=== PATIENT | female | born 1985 | race American Indian/Alaskan Native ===

== ENCOUNTER 2020-11-20 13:11 | Observation (INO) | payer MEDICAID ==
--- NOTE | 2020-11-20 14:03 | Event Note ---
ED Screening Note ED Screening Note: SOB that worsened today states she has been having SOB for a couple months +fever no n/v/d was last admitted a few days ago at [facility] of pulmonary HTN, ESRD (Friday and ) states she last went on 11/14/2020, RA wears oxygen at home, 2L This initial assessment/diagnostic orders/clinical plan/treatment(s) is/are subject to change based on patients health status, clinical progression and re- assessment by fellow clinical providers in the ED. Further treatment and workup at subsequent clinical providers discretion. Patient/guardian urged not to elope from the ED as their condition may be serious if not clinically assessed and managed. Initial orders include: code sepsis
[2020-11-20 14:28] LABS: Mean Corpuscular HGB Conc 30 % (30-34); Mean Corpuscular Volume 83 fl (79-97); Platelet Count 191 K/mm3 (140-440); Red Blood Count 3.61 M/mm3 (3.65-5.03)
[2020-11-20 14:33] LABS: Hematocrit 29.9 % (30.3-42.9); Red Cell Distribution Width 20.5 % (13.2-15.2)
[2020-11-20] MEDS ORDERED: CEFEPIME/NS 2 GM/100 ML 2 GM/100 ML BAG IV ONE (14:40)
[2020-11-20] MEDS ORDERED: SODIUM CHLORIDE 0.9% 500 ML 500 ML IV ONE (14:40)
[2020-11-20 14:52] LABS: Alanine Aminotransferase 8 units/L (7-56); Albumin 3.9 g/dL (3.9-5); BUN/Creatinine Ratio 42; Blood Urea Nitrogen 38 mg/dL (7-17); Hemolysis Index 10
[2020-11-20] MEDS ORDERED: KETOROLAC 30 MG/1 ML INJ IV ONE (15:11)
[2020-11-20] MEDS ORDERED: SODIUM BICARB 8.4% 50 MEQ/50 ML SYRINGE IV ONE (15:19)
[2020-11-20] MEDS ORDERED: ALBUTEROL 2.5 MG/3 ML NEBU IH ONE (15:19)
[2020-11-20] MEDS ORDERED: INSULIN REGULAR, HUMAN 100 UNIT/ML 3ML VIAL IV ONE (15:19)
[2020-11-20] MEDS ORDERED: DEXTROSE 50% IN WATER (25GM) 50 ML SYRINGE IV ONE (15:19)
--- NOTE | 2020-11-20 15:32 | Emergency Department Report ---
ED Shortness of Breath HPI - General Chief Complaint: Dyspnea/Respdistress Stated Complaint: ÁNGEL/SOB Time Seen by Provider: 11/20/20 13:59 Source: patient, EMS Mode of arrival: Wheelchair Limitations: No Limitations - History of Present Illness Initial Comments: Patient is a 35-year-old F Senegalese female with a past medical history of systemic lupus pulmonary hypertension end-stage renal disease who is presenting with shortness of breath. Patient states that she does dialysis twice a week. She has a port in the right subclavian. Patient's last dialysis was Friday and she was told that her labs look good and that she did not need dialysis at that time. Patient states she has developed shortness of breath over the last 24 hours. She is short of breath despite being oxygen dependent and wearing her oxygen. Patient arrived with O2 sat in the upper 80s. Who placed the patient on 4 L of nasal cannula which did increase her oxygen level 200%. Patient denies cough congestion. She will was surprised to find out that she was febrile on arrival. Patient states she is making urine and is compliant with Lasix for her pulmonary hypertension. States she is weak when she stands and has a great deal of fatigue over the last 24 hours as well. - Related Data Allergies Allergy/AdvReac Type Severity Reaction Status Date / Time acetaminophen Allergy Hives Verified 11/20/20 13:23 heparin Allergy Hives Verified 11/20/20 13:23 morphine Allergy Hives Verified 11/20/20 13:23 oxycodone [From Percocet] Allergy Hives Verified 11/20/20 13:23 ED Review of Systems ROS: Stated complaint: ÁNGEL/SOB Other details as noted in HPI Comment: All other systems reviewed and negative ED Past Medical Hx - Past Medical History Hx Renal Disease: Yes Additional medical history: PULMONARY EDEMA/ VENTILATOR IN AUG - Social History Smoking Status: Never Smoker Substance Use Type: None ED Physical Exam - General Limitations: No Limitations General appearance: alert, in no apparent distress - Head Head exam: Present: atraumatic, normocephalic - Eye Eye exam: Present: normal appearance - ENT ENT exam: Present: normal orophraynx, mucous membranes moist - Neck Neck exam: Present: normal inspection - Respiratory Respiratory exam: Present: respiratory distress, rales. Absent: normal lung sounds bilaterally, wheezes, rhonchi, stridor, chest wall tenderness, accessory muscle use - Cardiovascular Cardiovascular Exam: Present: normal rhythm, tachycardia. Absent: systolic murmur, diastolic murmur, rubs, gallop - GI/Abdominal GI/Abdominal exam: Present: soft, normal bowel sounds. Absent: distended, tenderness, guarding, rebound - Extremities Exam Extremities exam: Present: normal inspection - Back Exam Back exam: Present: normal inspection - Neurological Exam Neurological exam: Present: alert, oriented X3 - Psychiatric Psychiatric exam: Present: normal affect, normal mood - Skin Skin exam: Present: warm, dry, intact, normal color. Absent: rash ED Course Vital Signs 11/20/20 13:14 Temperature 101 F H Pulse Rate 130 H Respiratory 28 H Rate Blood Pressure 154/77 O2 Sat by Pulse 100 Oximetry ED Medical Decision Making - Lab Data Result diagrams: 11/20/20 14:06 11/20/20 14:06 Lab Results 11/20/20 11/20/20 11/20/20 Range/Units 14:06 14:06 14:06 WBC 6.6 (4.5-11.0) K/mm3 RBC 3.61 L (3.65-5.03) M/mm3 Hgb 9.0 L (10.1-14.3) gm/dl Hct 29.9 L (30.3-42.9) % MCV 83 (79-97) fl MCH 25 L (28-32) pg MCHC 30 (30-34) % RDW 20.5 H (13.2-15.2) % Plt Count 191 (140-440) K/mm3 Seg Neutrophils % Medical Reimbursement Manager Sodium 142 (137-145) mmol/L Potassium 7.2 H* (3.6-5.0) mmol/L Chloride 108.1 H (98-107) mmol/L Carbon Dioxide 25 (22-30) mmol/L Anion Gap 16 mmol/L BUN 38 H (7-17) mg/dL Creatinine 0.9 (0.6-1.2) mg/dL Estimated GFR > 60 ml/min BUN/Creatinine Ratio 42 % Glucose 81 (65-100) mg/dL Lactic Acid 0.60 L (0.7-2.0) mmol/L Calcium 9.0 (8.4-10.2) mg/dL Total Bilirubin 0.40 (0.1-1.2) mg/dL AST 19 (5-40) units/L ALT 8 (7-56) units/L Alkaline Phosphatase 103 (35-129) units/L NT-Pro-B Natriuret Pep 3558 H (0-450) pg/mL Total Protein 9.0 H (6.3-8.2) g/dL Albumin 3.9 (3.9-5) g/dL Albumin/Globulin Ratio 0.8 % - EKG Data -: EKG Interpreted by Me EKG shows normal: intervals - EKG Data 11/20/20 15:51 EKG shows sinus tachycardia 122. [place] is rightward. Intervals otherwise normal. There is no ST segment elevations or depressions or peak T waves. Time of interpretation 1545. - Radiology Data Chest x-ray shows diffuse interstitial changes consistent with pulmonary edema. - Medical Decision Making Patient is a 35-year-old F [place] female is presenting with fluid overload shortness of breath. Patient is has a history of end-stage renal disease and has not been dialyzed in 6 days. Patient was initially hypoxic but we increased her oxygen to 4 L and her hypoxia resolved. Patient's laboratory studies show elevated potassium. Ordered cocktail to decrease the potassium level however the patient is going to dialysis immediately and we will hold these medications since she is going directly to dialysis. We will keep the order in case there is some delay in the patient will need these medications. Patient does have a fever and met sepsis criteria. Blood cultures drawn. Is likely that the patient has bacteremia. Patient given a dose of cefepime and follow-up on her blood cultures when they returned. Patient be admitted to the hospitalist service. Nephrology has been consulted. Critical Care Time: Yes (30) Critical care attestation.: If time is entered above; I have spent that time in minutes in the direct care of this critically ill patient, excluding procedure time. ED Disposition Clinical Impression: ESRD needing dialysis, Hyperkalemia Pulmonary edema Qualifiers: Chronicity: acute Qualified Code(s): J81.0 - Acute pulmonary edema Sepsis Qualifiers: Sepsis type: sepsis due to unspecified organism Sepsis acute organ dysfunction status: unspecified Qualified Code(s): A41.9 - Sepsis, unspecified organism Disposition: OP ADMIT IP TO THIS HOSP Is pt being admited?: Yes Does the pt Need Aspirin: No Condition: Stable Instructions: Pulmonary Edema (ED) Time of Disposition: 15:55
[2020-11-20 15:49] LABS: Band Neutrophils # (Manual) 0.1 K/mm3; Total Cells Counted 100
[2020-11-20] MEDS ORDERED: SODIUM POLYSTYRENE 15 GM/60 ML ORAL LIQD PO ONE (15:49)
[2020-11-20 15:50] LABS: Anisocytosis 1+; Poikilocytosis 2+
[2020-11-20 16:08] LABS: Hypochromasia 1+; Tear Drop Cells 2+
[2020-11-20 16:09] LABS: Platelet Estimate Consistent w Auto
[2020-11-20] MEDS ORDERED: ACETAMINOPHEN 325 MG TAB PO ONE (16:14)
[2020-11-20 16:22] LABS: C-Reactive Protein 4.3 mg/dL (0.00-1.30)
[2020-11-20 16:28] LABS: Bilirubin,Urine NEG (Negative); Blood,Urine SM (Negative); Color,Urine Yellow (Yellow); Urobilinogen,Urine < 2.0 mg/dL (<2.0)
[2020-11-20 17:00] LABS: Hepatitis B Surface Antigen Non-Reactive (Negative); Hepatitis C Virus Antibody Non-Reactive (NonReactive)
--- NOTE | 2020-11-20 17:02 | Consultation ---
History of Present Illness - Reason for Consult Consult date: 11/20/20 end stage renal disease - History of Present Illness This is a 35 year old female who presents to the E.R with a chief complaint of having shortness of breath. Patient states she gets this shortness of breath every 30 days since started on a new medication for Pulmonary Hypertension which is being monitored by a doctor at [facility]. Patient states she was started on hemodialysis in August at [facility] but was told her renal failure was Acute and that she is still on dialysis to use it to help in managing her Pulmonary Hypertension. She states her outpatient environmental remediation engineer is Dr. Chowdhury of [facility]. Patient states she dialyzes at [facility] on Tuesdays and Saturdays but has not gotten any dialysis for 1 week now. Last dialysis was on Friday11/11/20. Patient has history of ESRD and Pulmonary Hypertension. We are being consulted for management of this patient's renal disease. Past History Past Medical History: anemia, dialysis, hypertension, renal failure, other (Acute Renal Failure) Past Surgical History: Other (Perm-cath placement) Social history: no significant social history Family history: no significant family history Medications and Allergies Allergies Allergy/AdvReac Type Severity Reaction Status Date / Time acetaminophen Allergy Hives Verified 11/20/20 13:23 heparin Allergy Hives Verified 11/20/20 13:23 morphine Allergy Hives Verified 11/20/20 13:23 oxycodone [From Percocet] Allergy Hives Verified 11/20/20 13:23 Review of Systems Constitutional: fatigue, no weight loss, no weight gain, no fever, no sweats Ears, nose, mouth and throat: no ear pain, no ear discharge, no tinnitis, no decreased hearing, no nose pain Cardiovascular: edema, shortness of breath, high blood pressure, leg edema, no chest pain, no orthopnea, no palpitations, no rapid/irregular heart beat Respiratory: shortness of breath, no cough with sputum, no excessive sputum, no hemoptysis Gastrointestinal: no abdominal pain, no nausea, no vomiting, no diarrhea, no constipation Genitourinary Female: no dyspareunia, no dysmenorrhea, no pelvic pain, no flank pain, no menorrhagia Musculoskeletal: no neck stiffness, no neck pain, no shooting arm pain, no arm numbness/tingling Integumentary: sores, wounds, no rash, no pruritis, no redness, no jaundice, no boils Neurological: weakness, no head injury, no transient paralysis, no paralysis, no seizures, no syncope, no tremors Psychiatric: no memory loss, no change in sleep habits, no sleep disturbances, no insomnia, no hypersomnia Endocrine: no cold intolerance, no heat intolerance, no polyphagia Exam - Vital Signs Vital signs: Vital Signs Temp Pulse Resp BP Pulse Ox 101 F H 130 H 28 H 154/77 100 11/20/20 13:14 11/20/20 13:14 11/20/20 13:14 11/20/20 13:14 11/20/20 13:14 - General Appearance General appearance: well-developed, appears stated age, fatigue EENT: ATNC, PERRL, hearing intact, vision intact Neck: Present: neck supple, trachea midline Respiratory: Decreased Breath Sounds Heart: regular, S1S2 Gastrointestinal: Present: normoactive bowel sounds Integumentary: warm and dry Neurologic: alert and oriented x3 Musculoskeletal: Present: decreased ROM, other (Has wound bandages to bother lower extremities) Results - Lab Results 11/20/20 14:06 11/20/20 15:44 Most recent lab results Calcium 9.0 mg/dL (8.4-10.2) 11/20/20 14:06 Assessment and Plan Assessment: Acute Renal Failure on intermittent hemodialysis Hyperkalemia Anemia Shortness of Breath pulmonary Hypertension Plan: -Renal labs reviewed. Serum creatinine 0.9 and BUN level 38. -Patient has a functional perm-catheter to left IJ -Patient reports her renal failure is Acute but is on intermittent hemodialysis twice per week and sometimes once per week to help in managing her Pulmonary H ypertension. Patient to follow-up with he outpatient environmental remediation engineer upon discharge -STAT hemodialysis ordered for clearance mainly given Hyperkalemia via her left IJ perm-catheter -Fluid restriction of 1 liter per day -Obtain daily weights -Monitor I/O's daily -Avoid nephrotoxic agents -Can be discharged after HD today
--- NOTE | 2020-11-20 19:50 | History and Physical Report ---
History of Present Illness Date of examination: 11/20/20 Date of admission: 11/20/20 15:55 Chief complaint: Shortness of breath for 1 day No dialysis for 6 days History of present illness: 35-year-old F Vincentian female with a past medical history of systemic lupus pu lmonary hypertension end-stage renal disease is presenting with shortness of breath. Patient states that she does dialysis twice a week. She has a port in the right subclavian. Patient's last dialysis was Friday and she was told that her labs look good and that she did not need dialysis at that time. Patient states she has developed shortness of breath over the last 24 hours. She is short of breath despite being oxygen dependent and wearing her oxygen. Patient arrived with O2 sat in the upper 80s. Patient on 4 L of nasal cannula which did increase her oxygen level 200%. Patient denies cough congestion. She will was surprised to find out that she was febrile on arrival. Patient states she is making urine and is compliant with Lasix for her pulmonary hypertension. States she is weak when she stands and has a great deal of fatigue over the last 24 hours as well.Fever once. Has Vas-Cath. - Related Data Allergies Allergy/AdvReac Type Severity Reaction Status Date / Time acetaminophen Allergy Hives Verified 11/20/20 13:23 heparin Allergy Hives Verified 11/20/20 13:23 morphine Allergy Hives Verified 11/20/20 13:23 oxycodone [From Percocet] Allergy Hives Verified 11/20/20 13:23 - Past Medical History Hx Renal Disease: Yes Additional medical history: PULMONARY EDEMA/ VENTILATOR IN AUG 12 [id number] and 31 surgical history - Social History Smoking Status: Never Smoker Substance Use Type: None Review of Systems ROS: Stated complaint: ÁNGEL/SOB Other details as noted in HPI Comment: All other systems reviewed and negative Medications and Allergies Allergies Allergy/AdvReac Type Severity Reaction Status Date / Time acetaminophen Allergy Hives Verified 11/20/20 13:23 heparin Allergy Hives Verified 11/20/20 13:23 morphine Allergy Hives Verified 11/20/20 13:23 oxycodone [From Percocet] Allergy Hives Verified 11/20/20 13:23 Exam - Constitutional Vitals: Temp Pulse Resp BP Pulse Ox 97.8 F 88 32 H 98/48 98 11/20/20 17:25 11/20/20 19:45 11/20/20 17:25 11/20/20 19:45 11/20/20 16:15 Results - Labs CBC & Chem 7: 11/20/20 14:06 11/20/20 15:44 Labs: Laboratory Last Values WBC 6.6 K/mm3 (4.5-11.0) 11/20/20 14:06 RBC 3.61 M/mm3 (3.65-5.03) L 11/20/20 14:06 Hgb 9.0 gm/dl (10.1-14.3) L 11/20/20 14:06 Hct 29.9 % (30.3-42.9) L 11/20/20 14:06 MCV 83 fl (79-97) 11/20/20 14:06 MCH 25 pg (28-32) L 11/20/20 14:06 MCHC 30 % (30-34) 11/20/20 14:06 RDW 20.5 % (13.2-15.2) H 11/20/20 14:06 Plt Count 191 K/mm3 (140-440) 11/20/20 14:06 Add Manual Diff Complete 11/20/20 14:06 Total Counted 100 11/20/20 14:06 Seg Neutrophils % Supervisor Roving 11/20/20 14:06 Seg Neuts % (Manual) 86.0 % (40.0-70.0) H 11/20/20 14:06 Band Neutrophils % 2.0 % 11/20/20 14:06 Lymphocytes % (Manual) 7.0 % (13.4-35.0) L 11/20/20 14:06 Monocytes % (Manual) 3.0 % (0.0-7.3) 11/20/20 14:06 Metamyelocytes % 2.0 % 11/20/20 14:06 Nucleated RBC % Not Reportable 11/20/20 14:06 Seg Neutrophils # Man 5.7 K/mm3 (1.8-7.7) 11/20/20 14:06 Band Neutrophils # 0.1 K/mm3 11/20/20 14:06 Lymphocytes # (Manual) 0.5 K/mm3 (1.2-5.4) L 11/20/20 14:06 Abs React Lymphs (Man) 0.0 K/mm3 11/20/20 14:06 Monocytes # (Manual) 0.2 K/mm3 (0.0-0.8) 11/20/20 14:06 Eosinophils # (Manual) 0.0 K/mm3 (0.0-0.4) 11/20/20 14:06 Basophils # (Manual) 0.0 K/mm3 (0.0-0.1) 11/20/20 14:06 Metamyelocytes # 0.1 K/mm3 11/20/20 14:06 Myelocytes # 0.0 K/mm3 11/20/20 14:06 Promyelocytes # 0.0 K/mm3 11/20/20 14:06 Blast Cells # 0.0 K/mm3 11/20/20 14:06 WBC Morphology Not Reportable 11/20/20 14:06 Hypersegmented Neuts Not Reportable 11/20/20 14:06 Hyposegmented Neuts Not Reportable 11/20/20 14:06 Hypogranular Neuts Not Reportable 11/20/20 14:06 Smudge Cells Not Reportable 11/20/20 14:06 Toxic Granulation Not Reportable 11/20/20 14:06 Toxic Vacuolation Not Reportable 11/20/20 14:06 Dohle Bodies Not Reportable 11/20/20 14:06 Pelger-Huet Anomaly Not Reportable 11/20/20 14:06 Laureen Rods Not Reportable 11/20/20 14:06 Platelet Estimate Consistent w auto 11/20/20 14:06 Clumped Platelets Not Reportable 11/20/20 14:06 Plt Clumps, EDTA Not Reportable 11/20/20 14:06 Large Platelets Not Reportable 11/20/20 14:06 Giant Platelets Not Reportable 11/20/20 14:06 Platelet Satelliting Not Reportable 11/20/20 14:06 Plt Morphology Comment Not Reportable 11/20/20 14:06 RBC Morphology Not Reportable 11/20/20 14:06 Dimorphic RBCs Not Reportable 11/20/20 14:06 Polychromasia Not Reportable 11/20/20 14:06 Hypochromasia 1+ 11/20/20 14:06 Poikilocytosis 2+ 11/20/20 14:06 Anisocytosis 1+ 11/20/20 14:06 Microcytosis Not Reportable 11/20/20 14:06 Macrocytosis Not Reportable 11/20/20 14:06 Spherocytes Not Reportable 11/20/20 14:06 Pappenheimer Bodies Not Reportable 11/20/20 14:06 Sickle Cells Not Reportable 11/20/20 14:06 Target Cells Not Reportable 11/20/20 14:06 Tear Drop Cells 2+ 11/20/20 14:06 Ovalocytes Not Reportable 11/20/20 14:06 Helmet Cells Not Reportable 11/20/20 14:06 [place] Bodies Not Reportable 11/20/20 14:06 [place] Rings Not Reportable 11/20/20 14:06 [place] Cells Not Reportable 11/20/20 14:06 Bite Cells Not Reportable 11/20/20 14:06 Crenated Cell Not Reportable 11/20/20 14:06 Elliptocytes Few 11/20/20 14:06 Acanthocytes (Spur) Not Reportable 11/20/20 14:06 Rouleaux Not Reportable 11/20/20 14:06 Hemoglobin C Crystals Not Reportable 11/20/20 14:06 Schistocytes Not Reportable 11/20/20 14:06 Malaria parasites Not Reportable 11/20/20 14:06 Ch[place] Bodies Not Reportable 11/20/20 14:06 Hem Pathologist Commnt No 11/20/20 14:06 D-Dimer 1134.27 ng/mlDDU (0-234) H 11/20/20 15:44 Sodium 142 mmol/L (137-145) 11/20/20 14:06 Potassium 7.2 mmol/L (3.6-5.0) H* 11/20/20 14:06 Chloride 108.1 mmol/L (98-107) H 11/20/20 14:06 Carbon Dioxide 25 mmol/L (22-30) 11/20/20 14:06 Anion Gap 16 mmol/L 11/20/20 14:06 BUN 38 mg/dL (7-17) H 11/20/20 14:06 Creatinine 0.9 mg/dL (0.6-1.2) 11/20/20 14:06 Estimated GFR > 60 ml/min 11/20/20 14:06 BUN/Creatinine Ratio 42 % 11/20/20 14:06 Glucose 73 mg/dL (65-100) 11/20/20 15:44 Lactic Acid 0.60 mmol/L (0.7-2.0) L 11/20/20 14:06 Calcium 9.0 mg/dL (8.4-10.2) 11/20/20 14:06 Ferritin 354.2 ng/mL (10.0-200.0) H 11/20/20 15:44 Total Bilirubin 0.40 mg/dL (0.1-1.2) 11/20/20 14:06 AST 19 units/L (5-40) 11/20/20 14:06 ALT 8 units/L (7-56) 11/20/20 14:06 Alkaline Phosphatase 103 units/L (35-129) 11/20/20 14:06 Lactate Dehydrogenase 184 units/L (91-180) H 11/20/20 15:44 C-Reactive Protein 4.30 mg/dL (0.00-1.30) H 11/20/20 15:44 NT-Pro-B Natriuret Pep 3558 pg/mL (0-450) H 11/20/20 14:06 Total Protein 9.0 g/dL (6.3-8.2) H 11/20/20 14:06 Albumin 3.9 g/dL (3.9-5) 11/20/20 14:06 Albumin/Globulin Ratio 0.8 % 11/20/20 14:06 Urine Color Yellow (Yellow) 11/20/20 15:46 Urine Turbidity Clear (Clear) 11/20/20 15:46 Urine pH 5.0 (5.0-7.0) 11/20/20 15:46 Ur Specific [place] 1.010 (1.003-1.030) 11/20/20 15:46 Urine Protein 100 mg/dl mg/dL (Negative) 11/20/20 15:46 Urine Glucose (UA) Neg mg/dL (Negative) 11/20/20 15:46 Urine Ketones Neg mg/dL (Negative) 11/20/20 15:46 Urine Blood Sm (Negative) 11/20/20 15:46 Urine Nitrite Neg (Negative) 11/20/20 15:46 Urine Bilirubin Neg (Negative) 11/20/20 15:46 Urine Urobilinogen < 2.0 mg/dL (<2.0) 11/20/20 15:46 Ur Leukocyte Esterase Lg (Negative) 11/20/20 15:46 Urine WBC (Auto) 16.0 /HPF (0.0-6.0) H 11/20/20 15:46 Urine RBC (Auto) 18.0 /HPF (0.0-6.0) 11/20/20 15:46 U Epithel Cells (Auto) 2.0 /HPF (0-13.0) 11/20/20 15:46 Hepatitis A IgM Ab Non-reactive (NonReactive) 11/20/20 16:19 Hep Bs Antigen Non-reactive (Negative) 11/20/20 16:19 Hep B Core IgM Ab Non-reactive (NonReactive) 11/20/20 16:19 Hepatitis C Antibody Non-reactive (NonReactive) 11/20/20 16:19 Short CBC 11/20/20 Range/Units 14:06 WBC 6.6 (4.5-11.0) K/mm3 Hgb 9.0 L (10.1-14.3) gm/dl Hct 29.9 L (30.3-42.9) % Plt Count 191 (140-440) K/mm3 BMP 11/20/20 11/20/20 14:06 15:44 Sodium 142 Potassium 7.2 H* Chloride 108.1 H Carbon Dioxide 25 BUN 38 H Creatinine 0.9 Glucose 81 73 Calcium 9.0 Liver Function 11/20/20 Range/Units 14:06 Total Bilirubin 0.40 (0.1-1.2) mg/dL AST 19 (5-40) units/L ALT 8 (7-56) units/L Alkaline Phosphatase 103 (35-129) units/L Albumin 3.9 (3.9-5) g/dL Urine 11/20/20 Range/Units 15:46 Urine Color Yellow (Yellow) Urine pH 5.0 (5.0-7.0) Ur Specific [place] 1.010 (1.003-1.030) Urine Protein 100 mg/dl (Negative) mg/dL Urine Glucose (UA) Neg (Negative) mg/dL Microbiology: Microbiology 11/20/20 14:06 Peripheral/Venous Blood Culture - Preliminary Culture in Progress 11/20/20 14:06 Peripheral/Venous Blood Culture - Preliminary Culture in Progress Benjamin/IV: IV Catheter Type [Left Hand] INT / Saline Lock Assessment and Plan Advance Directives: Yes (Full code) VTE prophylaxis?: Chemical Plan of care discussed with patient/family: Yes - Patient Problems (1) Volume overload Current Visit: Yes Status: Acute Plan to address problem: Needs emergent hemodialysis for increased ultrafiltration and removal of fluid up to 2 L (2) ESRD needing dialysis Current Visit: Yes Status: Acute Plan to address problem: Emergent hemodialysis Nephrology consulted (3) Hyperkalemia Current Visit: Yes Status: Acute Plan to address problem: Patient to get low potassium bath Patient also given Kayexalate calcium gluconate etc. in the emergency room (4) Insulin dependent diabetes mellitus Current Visit: Yes Status: Acute Plan to address problem: continue insulin (5) DVT prophylaxis Current Visit: Yes Status: Acute Plan to address problem: On heparin and GI prophylaxis
[2020-11-20] MEDS ORDERED: ONDANSETRON 4 MG/2 ML INJ IV PRN (20:15)
[2020-11-20] MEDS ORDERED: HYDROmorphone 1 MG/1 ML INJ IV PRN (20:15)
[2020-11-20] MEDS ORDERED: ACETAMINOPHEN 325 MG TAB PO PRN (20:15)
[2020-11-20] MEDS ORDERED: oxyCODONE /ACETAMINOPHEN 5-325MG TAB PO PRN (20:15)
[2020-11-20 21:12] VITALS: BP 95/56
--- NOTE | 2020-11-21 18:05 | XRay Report ---
CHEST PA AND LATERAL VIEWS INDICATION: SOB, fever. COMPARISON: None FINDINGS: Support devices: Right perm catheter projected over the right atrium. Heart: Moderately enlarged Lungs/Pleura: Extensive bilateral lung disease, with only minimal pleural effusion on the left. IMPRESSION: 1. Appearance is most suggestive of congestive failure. However, history also indicates fever, so wid espread pneumonia is certainly a consideration. Obviously, suggest close follow-up. Signer Name: Luciano Vaughn MD Signed: 11/20/2020 3:01 PM Workstation Name: [id number]
== END 2020-11-20 23:48 | disposition home or self-care (01) ==
LOC: ED 13:11 → 3A 15:55
PROVIDERS: ADMIT Internal Medicine; ATTEND Internal Medicine
DX: A41.9 Sepsis, unspecified organism (principal); E87.70 Fluid overload, unspecified; I12.0 Hypertensive chronic kidney disease with stage 5 chronic kidney disease or end stage renal disease; N18.6 End stage renal disease; E87.5 Hyperkalemia; N17.9 Acute kidney failure, unspecified; J81.1 Chronic pulmonary edema; E11.9 Type 2 diabetes mellitus without complications; D64.9 Anemia, unspecified; Z99.2 Dependence on renal dialysis; Z79.4 Long term (current) use of insulin; Z98.890 Other specified postprocedural states; Z79.899 Other long term (current) drug therapy
CPT/HCPCS: 36415; 71046; 80053; 80074; 81001; 82140; 82728; 82947; 83615; 83880; 84145; 85007; 85025; 85379; 86140; 87040; 87086; 93005; 96365; 96375; 99291; G0257; G0378; J0692; J1170; J7040; J1815; J1885

== ENCOUNTER 2021-05-24 09:54 | Day surgery (SDC) | payer MEDICARE ==
--- NOTE | 2021-05-24 10:55 | Short Stay Summary ---
Short Stay Documentation Date of service: 05/24/21 - History Principal diagnosis: Dialysis access malfunction Past Medical History: dialysis, ESRD, other (Lupus) Past Surgical History: No surgical history (Right IJ PermCath) Social history: no significant social history - Allergies and Medications Current Medications: Allergies acetaminophen Allergy (Verified 11/20/20 13:23) Hives heparin Allergy (Verified 11/20/20 13:23) Hives morphine Allergy (Verified 11/20/20 13:23) Hives oxycodone [From Percocet] Allergy (Verified 11/20/20 13:23) Hives Home Medications Medication Instructions Recorded Confirmed Last Taken Type levoFLOXacin [Levaquin] 250 mg PO QDAY #8 tablet 11/20/20 Unknown Rx Active Medications Sodium Chloride (Nacl 0.9% 500 Ml) 500 mls @ 50 mls/hr IV DIRECT STEVO - Physical exam General appearance: no acute distress, cachectic Integumentary: no rash HEENT: Atraumatic Lungs: Normal air movement Breasts: deferred Heart: Regular rate Female Genitourinary: deferred Rectal Exam: deferred Neurological: Normal speech - Brief post op/procedure progress note Date of procedure: 05/24/21 Pre-op diagnosis: Malfunctioning dialysis access Post-op diagnosis: same Procedure: Fluoroscopic guided exchange of tunneled hemodialysis catheter, central venoplasty Anesthesia: local Surgeon: LUANN JI Estimated blood loss: minimal Pathology: none Condition: stable - Disposition Condition at discharge: Good Disposition: DC-01 TO HOME OR SELFCARE Short Stay Discharge Plan Activity: advance as tolerated Weight Bearing Status: Weight Bear as Tolerated Diet: regular Wound: keep clean and dry, per your surgeon's advice Follow up with: PRIMARY CARE, [Primary Care Provider] - 7 Days
[2021-05-24] MEDS ORDERED: SODIUM CHLORIDE 0.9% 500 ML 500 ML IV SCH (11:00)
[2021-05-24 11:11] LABS: Hematocrit 29.5 % (30.3-42.9); Hemoglobin 9.1 gm/dl (10.1-14.3); Mean Corpuscular HGB Conc 31 % (30-34); Mean Corpuscular Volume 85 fl (79-97); Red Blood Count 3.48 M/mm3 (3.65-5.03)
[2021-05-24 11:23] LABS: INR 1.19 (0.87-1.13)
[2021-05-24 11:24] LABS: Partial Thromboplastin Time 31.9 Sec. (24.2-36.6)
[2021-05-24 11:31] LABS: Red Cell Distribution Width 20.6 % (13.2-15.2)
[2021-05-24] MEDS ORDERED: BIVALIRUDIN 250 MG INJ IV ONE (11:48)
[2021-05-24] MEDS ORDERED: fentaNYL 100 MCG/2 ML INJ ONE (11:50)
[2021-05-24] MEDS ORDERED: LIDOCAINE 1%/EPINEPHRINE 1:100,000 VIAL (20 ML) INFILTRATI ONE (11:50)
[2021-05-24] MEDS ORDERED: MIDAZOLAM 2 MG/2 ML INJ ONE (11:50)
[2021-05-24] MEDS ORDERED: SODIUM CHLORIDE 0.9% 100 ML ONE (11:51)
[2021-05-24] MEDS ORDERED: SODIUM CHLORIDE 0.9% 500 ML 500 ML ONE (11:51)
[2021-05-24] MEDS ORDERED: SODIUM CHLORIDE 0.9% 250ML 0 ML ONE (12:12)
[2021-05-24 12:21] LABS: Platelet Count 73 K/mm3 (140-440)
[2021-05-24] MEDS ORDERED: HEPARIN 10,000 UNITS/10 ML VIAL ONE (12:46)
--- NOTE | 2021-05-24 12:57 | Operative Report ---
Operative Report Operative Report: Exam: Fluoroscopic guided tunneled hemodialysis catheter exchange, central venogram with venoplasty of central SVC stenosis Clinical indication: Patient with a history of end-stage renal disease on hemodialysis through right chest wall catheter with poor clearances Date: 05/24/2021 Procedure: Following an explanation of the risks, benefits and alternatives; written informed consent was obtained. The patient was brought to the angiographic suite and placed in supine position on the examination table. Initial fluoroscopic images of her catheter demonstrated appropriate positioning of the catheter tip. The patient's right chest wall and indwelling catheter were prepped and draped in the usual sterile fashion. 1% lidocaine was used for anesthesia. The catheter cuff was dissected free. A 0.035 guidewire was advanced through the arterial lumen into the IVC for anchoring. The catheter was then withdrawn proximally. The venous port was then utilized and contrast injected which demonstrates significant stenosis of the SVC. The catheter was then removed intact and an 6 Maltese sheath placed over the guidewire. Venoplasty of the SVC was performed at multiple locations using a 10 mm x 40 mm balloon insufflated to nominal atmospheres. With the guidewires in position, a new Bard 19 cm glidepath tunneled hemodialysis catheter was then threaded over both guidewires and advanced to position the tip in the proximal right atrium. The guidewire were removed. Both ports flushed and aspirated easily and were then locked with Angiomax and saline. The catheter was securely fastened to the skin surface using 2-0 Ethilon suture. Sterile dressings were then applied. The patient tolerated the procedure well. There were no immediate postprocedure complications. Conscious sedation was not utilized secondary to patient's multiple allergies. Versed was used for anxiolysis. Impression: 1) Fluoroscopic guided tunneled hemodialysis catheter exchange. 2) Central venogram demonstrating significant stenosis of the SVC with venoplasty with a 10 mm x 40 mm balloon.
[2021-05-24 13:12] VITALS: BP 120/79
== END 2021-05-24 09:55 | disposition home or self-care (01) ==
LOC: CATHLABREC 09:54
PROVIDERS: ATTEND Radiology Diagnostic Radiology
DX: T82.898A Other specified complication of vascular prosthetic devices, implants and grafts, initial encounter (principal); I87.1 Compression of vein; N18.6 End stage renal disease; Z88.5 Allergy status to narcotic agent; Z79.899 Other long term (current) drug therapy; Z79.01 Long term (current) use of anticoagulants; Z88.8 Allergy status to other drugs, medicaments and biological substances; Y92.89 Other specified places as the place of occurrence of the external cause; Y82.8 Other medical devices associated with adverse incidents
CPT/HCPCS: 36415; 36581; 37248; 77001; 80048; 85027; 85610; 85730; C1725; C1750; C1769; C1894; J0583; J1644; J2250; J3010; J7040; J7050; Q9967